=== PATIENT | female | born 1940 | race Caucasian/White ===

== ENCOUNTER 2018-11-01 15:58 | Observation (INO) | payer OTHER ==
[2018-11-01] MEDS ORDERED: IPRATROPIUM BROM 0.5MG/2.5ML ONE (16:42)
[2018-11-01] MEDS ORDERED: ALBUTEROL 2.5 MG/3 ML NEB SOL ONE (16:42)
[2018-11-01 17:08] LABS: Absolute Lymphocytes (CBC) 0.8 K/uL (0.7-4.9); Absolute Monocytes 0.4 K/uL (0.1-1.3); Absolute Neutrophil 4.8 K/uL (1.8-8.0); Basophils % 0.9 % (0-1.3); Eosinophils % 0.2 % (0-4.4); Hematocrit 43.2 % (36.0-45.0); Lymphocytes % 13.7 % (15.3-44.8); MCH 29.7 pg (27.0-35.0); MCV 87.5 fL (80-100); MPV 7.8 fL (7.6-11.3); Monocytes % 7.4 % (3.3-12.3); RBC Red Blood Cell Count 4.94 M/uL (3.86-4.86)
[2018-11-01 17:13] LABS: Protime INR 1.89
[2018-11-01 17:23] LABS: ALT/SGPT 14 U/L (12-78); AST/SGOT 14 U/L (15-37); Albumin 3.5 g/dL (3.4-5.0); Alkaline Phosphatase 101 U/L (45-117); BUN Blood Urea Nitrogen 14 mg/dL (7-18); Bicarbonate 30 mmol/L (21-32); Bilirubin Direct 0.1 mg/dL (0-0.2); Bilirubin Total 0.4 mg/dL (0.2-1.0); Glucose Level 132 mg/dL (74-106); Magnesium 2.1 mg/dL (1.8-2.4); NT PRO-BNP 654 pg/mL (<450); Potassium 3.6 mmol/L (3.5-5.1); Protein, Total 7.4 g/dL (6.4-8.2); Sodium Level 138 mmol/L (136-145); Troponin (Emerg Dept Use Only) < 0.02 ng/mL (0.0-0.045)
--- NOTE | 2018-11-01 17:55 | RAD REPORT ---
EXAM DESCRIPTION: Kaur Single View11/01/2018 5:33 pm CLINICAL HISTORY: cough COMPARISON: October 2017 FINDINGS: Calcified lung granulomas. The lungs appear clear of acute infiltrate. The heart is normal size IMPRESSION: No acute abnormalities displayed
[2018-11-01] MEDS ORDERED: predniSONE 20 MG TAB ONE (19:29)
--- NOTE | 2018-11-01 19:40 | ER ---
Nurse's Notes [facility] Name: Chrissy Vega Age: 78 yrs Sex: Female : 1940 Arrival Date: 11/01/2018 Time: 16:02 Bed 27 Private MD: out of town, doctor Diagnosis: Chronic obstructive pulmonary disease with (acute) exacerbation Presentation: 11/01 16:10 Presenting complaint: Patient states: productive cough, fever, congestion, SOB x 2 sv days. Transition of care: patient was not received from another setting of care. Onset of symptoms was October 30, 2018. Care prior to arrival: None. 16:10 Method Of Arrival: Wheelchair sv 16:10 Acuity: BEATRICE 3 sv 16:15 Risk Assessment: Do you want to hurt yourself or someone else? Patient reports no kr2 desire to harm self or others. Initial Sepsis Screen: Does the patient meet any 2 criteria? RR > 20 per min. No. Patient's initial sepsis screen is negative. Does the patient have a suspected source of infection? Yes: Productive cough/pneumonia. Triage Assessment: 16:10 General: Appears uncomfortable, Behavior is calm, cooperative, appropriate for age. sv Pain: Complains of pain in back of neck Pain currently is 7 out of 10 on a pain scale. Neuro: Level of Consciousness is awake, alert, obeys commands, Oriented to person, place, time, situation, Moves all extremities. Full function. Respiratory: Reports shortness of breath at rest on exertion labored breathing Airway is patent Respiratory effort is even, labored, Respiratory pattern is tachypnea Onset: The symptoms/episode began/occurred yesterday, the patient has moderate shortness of breath. Historical: - Allergies: 16:11 Codeine; sv 16:11 Naproxen; sv 16:11 PENICILLINS; sv - PSHx: 16:11 Hysterectomy; breast surgery; Appendectomy; Cholecystectomy; Back surgery x2; hip sv replacement; knee replacement; R ankle; - Immunization history:: Adult Immunizations unknown. - Social history:: Smoking status: Patient uses tobacco products. - Ebola Screening: : No symptoms or risks identified at this time. Screenin:15 Abuse screen: Denies threats or abuse. Denies injuries from another. Nutritional kr2 screening: No deficits noted. Tuberculosis screening: No symptoms or risk factors identified. Fall Risk Gait- Weak (10 pts.). Assessment: 16:15 General: Appears in no apparent distress. uncomfortable, well groomed, well developed, kr2 well nourished, Behavior is calm, cooperative. Pain: Denies pain. Neuro: Level of Consciousness is awake, alert, obeys commands, Oriented to person, place, time, situation. Cardiovascular: Patient's skin is warm and dry. Rhythm is regular. Respiratory: Airway is patent Respiratory effort is labored, Respiratory pattern is symmetrical, tachypnea Breath sounds are coarse bilaterally. Respiratory: Reports shortness of breath at rest on exertion cough that is productive, persistent the patient has moderate shortness of breath. GI: Abdomen is non-distended, obese, Bowel sounds present X 4 quads. Patient currently denies nausea, vomiting. EENT: Oral mucosa is dry. Derm: Skin is fragile, is thin, with poor turgor Skin is pink, warm \T\ dry. Musculoskeletal: Circulation, motion, and sensation intact. 17:27 Reassessment: Patient appears in no apparent distress at this time. Patient and/or kr2 family updated on plan of care and expected duration. Pain level reassessed. Patient is alert, oriented x 3, equal unlabored respirations, skin warm/dry/pink. 18:24 Reassessment: Patient appears in no apparent distress at this time. Patient and/or kr2 family updated on plan of care and expected duration. Pain level reassessed. Patient is alert, oriented x 3, equal unlabored respirations, skin warm/dry/pink. 19:30 Reassessment: Patient appears in no apparent distress at this time. Patient and/or kr2 family updated on plan of care and expected duration. Pain level reassessed. Patient is alert, oriented x 3, equal unlabored respirations, skin warm/dry/pink. Patient denies pain at this time. Patient states feeling better. 20:32 Reassessment: Patient appears in no apparent distress at this time. Patient and/or kr2 family updated on plan of care and expected duration. Pain level reassessed. Patient is alert, oriented x 3, equal unlabored respirations, skin warm/dry/pink. Patient denies pain at this time. Vital Signs: 16:11 BP 146 / 81; Pulse 93; Resp 28; Temp 98.2; Pulse Ox 94% on R/A; Weight 95.25 kg; Height sv 5 ft. 7 in. (170.18 cm); Pain 7/10; 17:15 BP 147 / 88; Pulse 86; Resp 23; Pulse Ox 96% on 2 lpm NC; kr2 18:21 BP 152 / 85; Pulse 80; Resp 19; Pulse Ox 97% on 2 lpm NC; kr2 19:24 BP 117 / 96; Pulse 87; Resp 20; Pulse Ox 97% on NC; kr2 20:32 BP 128 / 65; Pulse 88; Resp 17; Pulse Ox 99% on R/A; kr2 16:11 Body Mass Index 32.89 (95.25 kg, 170.18 cm) sv ED Course: 16:02 Patient arrived in ED. mr 16:02 out of town, doctor is Private Physician. mr 16:11 Triage completed. sv 16:12 Arm band placed on. sv 16:14 Claus Cordon MD is Attending Physician. gs 16:15 Patient has correct armband on for positive identification. Bed in low position. Call kr2 light in reach. Side rails up X2. Adult w/ patient. monitoring coordinator on. Pulse ox on. NIBP on. Door closed. Warm blanket given. Pillow given. Head of bed elevated. 16:45 Inserted saline lock: 22 gauge in right antecubital area, using aseptic technique. kr2 Blood collected. 17:06 Enma Bazan, RN is Primary Nurse. kr2 17:08 EKG done, by railway signal technician. reviewed by Claus Cordon MD. dt2 17:31 X-ray completed. Portable x-ray completed in exam room. Patient tolerated procedure ml well. 17:33 XRAY Chest (1 view) In Process Unspecified. EDMS 19:38 Travon Bautista MD is Hospitalizing Provider. gs 21:04 No provider procedures requiring assistance completed. Patient admitted, IV remains in kr2 place. 21:09 Inserted saline lock: 22 gauge in left antecubital area, using aseptic technique. mt Administered Medications: 16:45 Drug: Albuterol 2.5 mg Route: Inhalation; kr2 16:45 Drug: AtroVENT Aerosol 0.5 mg Route: Inhalation; kr2 19:24 Drug: predniSONE 40 mg Route: PO; kr2 20:31 Follow up: Response: No adverse reaction kr2 Outcome: 19:39 Decision to Hospitalize by Provider. 21:15 Admitted to Tele accompanied by tech, family with patient, via wheelchair, room 209, kr2 with oxygen, with chart, Report called to Shaun 21:15 Condition: stable 21:15 Instructed on the need for admit, Demonstrated understanding of instructions. 21:16 Patient left the ED. kr2 Signatures: Dispatcher [employer] Laurie Weber RN RN Ilir, Adilene mr Kolton, Sammi Roldan, Claus Olson mt, MD MD gs Reaves, Karey, RN RN kr2 Shabnam Solorio2
--- NOTE | 2018-11-01 19:40 | EDPHYS ---
Physician Documentation [facility] Name: Chrissy Vega Age: 78 yrs Sex: Female : 1940 Arrival Date: 11/01/2018 Time: 16:02 Bed 27 Private MD: out of town, doctor ED Physician Claus Cordon HPI: 11/01 20:04 This 78 yrs old Female presents to ER via Wheelchair with complaints of gs Cough, Fever, Breathing Difficulty. 20:04 The patient or guardian reports cough, that is constant. Onset: The symptoms/episode gs began/occurred 5 day(s) ago, and became worse and became persistent. Severity of symptoms: At their worst the symptoms were moderate, in the emergency department the symptoms are unchanged. Associated signs and symptoms: Pertinent positives: chest pain, fever. The patient has experienced similar episodes in the past, a few times. Historical: - Allergies: 16:11 Codeine; sv 16:11 Naproxen; sv 16:11 PENICILLINS; sv - PSHx: 16:11 Hysterectomy; breast surgery; Appendectomy; Cholecystectomy; Back surgery x2; hip sv replacement; knee replacement; R ankle; - Immunization history:: Adult Immunizations unknown. - Social history:: Smoking status: Patient uses tobacco products. - Ebola Screening: : No symptoms or risks identified at this time. ROS: 20:04 All other systems are negative. gs Exam: 20:04 Head/Face: Normocephalic, atraumatic. Eyes: Pupils equal round and reactive to light, gs extra-ocular motions intact. Lids and lashes normal. Conjunctiva and sclera are non-icteric and not injected. Cornea within normal limits. Periorbital areas with no swelling, redness, or edema. ENT: Nares patent. No nasal discharge, no septal abnormalities noted. Tympanic membranes are normal and external auditory canals are clear. Oropharynx with no redness, swelling, or masses, exudates, or evidence of obstruction, uvula midline. Mucous membranes moist. Neck: Trachea midline, no thyromegaly or masses palpated, and no cervical lymphadenopathy. Supple, full range of motion without nuchal rigidity, or vertebral point tenderness. No Meningismus. Chest/axilla: Normal chest wall appearance and motion. Nontender with no deformity. No lesions are appreciated. Abdomen/GI: Soft, non-tender, with normal bowel sounds. No distension or tympany. No guarding or rebound. No evidence of tenderness throughout. Back: No spinal tenderness. No costovertebral tenderness. Full range of motion. Skin: Warm, dry with normal turgor. Normal color with no rashes, no lesions, and no evidence of cellulitis. MS/ Extremity: Pulses equal, no cyanosis. Neurovascular intact. Full, normal range of motion. Neuro: Awake and alert, GCS 15, oriented to person, place, time, and situation. Cranial nerves II-XII grossly intact. Motor strength 5/5 in all extremities. Sensory grossly intact. Cerebellar exam normal. Normal gait. 20:04 Constitutional: The patient appears alert, awake, in obvious distress, moderately distressed. 20:04 Cardiovascular: Rate: normal, Rhythm: regular, Pulses: no pulse deficits are appreciated, Edema: is not appreciated. 20:04 ECG was reviewed by the Attending Physician. 20:04 Respiratory: the patient does not display signs of respiratory distress, Respirations: tachypnea, Breath sounds: rhonchi, that are severe, are heard diffusely. Vital Signs: 16:11 BP 146 / 81; Pulse 93; Resp 28; Temp 98.2; Pulse Ox 94% on R/A; Weight 95.25 kg; Height sv 5 ft. 7 in. (170.18 cm); Pain 7/10; 17:15 BP 147 / 88; Pulse 86; Resp 23; Pulse Ox 96% on 2 lpm NC; kr2 18:21 BP 152 / 85; Pulse 80; Resp 19; Pulse Ox 97% on 2 lpm NC; kr2 19:24 BP 117 / 96; Pulse 87; Resp 20; Pulse Ox 97% on NC; kr2 20:32 BP 128 / 65; Pulse 88; Resp 17; Pulse Ox 99% on R/A; kr2 16:11 Body Mass Index 32.89 (95.25 kg, 170.18 cm) sv MDM: 16:24 Patient medically screened. 20:04 Differential Diagnosis: Bronchitis Asthma Exacerbation Pneumonia Other copd, chf. Data gs reviewed: vital signs, nurses notes. Response to treatment: the patient's symptoms have markedly improved after treatment, and as a result, I will admit patient. 11/01 16:30 Order name: Basic Metabolic Panel; Complete Time: 17:34 gs 11/01 16:30 Order name: CBC with Diff; Complete Time: 17:34 11/01 16:30 Order name: LFT's; Complete Time: 17:34 11/01 16:30 Order name: Magnesium; Complete Time: 17:34 11/01 16:30 Order name: NT PRO-BNP; Complete Time: 17:34 11/01 16:30 Order name: PT-INR; Complete Time: 17:34 11/01 16:30 Order name: Troponin (emerg Dept Use Only); Complete Time: 17:34 11/01 16:30 Order name: Blood Culture* 11/01 19:49 Order name: CBC with Automated Diff EDMS 11/01 19:49 Order name: CBC with Automated Diff EDMS 11/01 19:49 Order name: Comprehensive Metabolic Panel EDMS 11/01 19:49 Order name: Comprehensive Metabolic Panel EDMS 11/01 19:49 Order name: Lipid Profile EDMS 11/01 19:49 Order name: Lipid Profile EDMS 11/01 16:30 Order name: XRAY Chest (1 view); Complete Time: 18:12 11/01 16:30 Order name: EKG; Complete Time: 16:31 11/01 16:30 Order name: Cardiac monitoring; Complete Time: 17:05 11/01 19:49 Order name: Heart Healthy EDMS 11/01 19:49 Order name: Magnesium EDMS 11/01 19:49 Order name: Magnesium EDMS 11/01 19:49 Order name: Phosphorus EDMS 11/01 19:49 Order name: Phosphorus EDMS 11/01 19:49 Order name: NT PRO-BNP EDMS 11/01 19:49 Order name: NT PRO-BNP EDMS 11/01 19:49 Order name: Troponin I EDMS 11/01 19:49 Order name: Troponin I EDMS 11/01 19:49 Order name: Troponin I EDMS 11/01 16:30 Order name: EKG - Nurse/Tech; Complete Time: 17:06 11/01 16:30 Order name: IV Saline Lock; Complete Time: 17:10 11/01 16:30 Order name: Labs collected and sent; Complete Time: 17:10 11/01 16:30 Order name: O2 Per Protocol; Complete Time: 17:05 11/01 16:30 Order name: O2 Sat Monitoring; Complete Time: 17:05 gs 12 18:13 Order name: Vital Signs; Complete Time: 18:29 gs EC: Rate is 90 beats/min. Rhythm is regular. OH interval is normal. QRS interval is gs prolonged. QT interval is prolonged. T waves are Inverted. Clinical impression: NSR w/ Non-specific ST/T Changes and Abnormal EKG without significant change. Interpreted by me. Administered Medications: 16:45 Drug: Albuterol 2.5 mg Route: Inhalation; kr2 16:45 Drug: AtroVENT Aerosol 0.5 mg Route: Inhalation; kr2 19:24 Drug: predniSONE 40 mg Route: PO; kr2 20:31 Follow up: Response: No adverse reaction kr2 Disposition: 11/01/18 19:39 Hospitalization ordered by Travon Bautista for Observation. Preliminary diagnosis is Chronic obstructive pulmonary disease with (acute) exacerbation. - Bed requested for Telemetry/MedSurg (observation). - Status is Observation. kr2 - Condition is Stable. - Problem is new. - Symptoms have improved. UTI on Admission? No Critical care time excluding procedures: 20:04 Critical care time: Bedside Care: 10 minutes, Consultation: 10 minutes, Family gs Intervention: 10 minutes. Total time: 30 minutes Signatures: Dispatcher [employer] Laurie Weber RN RN sv Garcia, Cindy, RN RN cg Starr, Gregory, MD MD Enma Bazan RN RN kr2 Corrections: (The following items were deleted from the chart) 20:02 19:39 Hospitalization Ordered by Travon Bautista MD for Observation. Preliminary cg diagnosis is Chronic obstructive pulmonary disease with (acute) exacerbation. Bed requested for Telemetry/MedSurg (observation). Status is Observation. Condition is Stable. Problem is new. Symptoms have improved. UTI on Admission? No. gs 20:24 20:02 11/01/2018 19:39 Hospitalization Ordered by Travon Bautista MD for Observation. cg Preliminary diagnosis is Chronic obstructive pulmonary disease with (acute) exacerbation. Bed requested for Telemetry/MedSurg (observation). Status is Observation. Condition is Stable. Problem is new. Symptoms have improved. UTI on Admission? No. cg 21:16 20:24 11/01/2018 19:39 Hospitalization Ordered by Travon Bautista MD for Observation. kr2 Preliminary diagnosis is Chronic obstructive pulmonary disease with (acute) exacerbation. Bed requested for Telemetry/MedSurg (observation). Status is Observation. Condition is Stable. Problem is new. Symptoms have improved. UTI on Admission? No. cg
[2018-11-01] MEDS ORDERED: ONDANSETRON 4 MG/2 ML VIAL IV PRN (19:45)
[2018-11-01] MEDS ORDERED: ALBUTEROL 2.5 MG/3 ML NEB SOL NEB PRN (19:45)
[2018-11-01] MEDS ORDERED: ACETAMINOPHEN 500 MG TAB PO PRN (19:45)
[2018-11-01] MEDS: IPRATROPIUM BROM 0.5MG/2.5ML NEB SCH (20:00)
[2018-11-01] MEDS: POTASSIUM 25 MEQ EFFERV TAB PO ONE ×2 (21:20→21:43)
[2018-11-01] MEDS ORDERED: POTASSIUM CL SA 10 MEQ TAB PO ONE (22:14)
[2018-11-01 22:21] VITALS: BMI 31.1
--- NOTE | 2018-11-01 22:39 | EKG ---
Test Date: 2018-11-01 Test Time: 16:47:43 Cloth Finishing Range Back Tender: DOUGLAS MEASUREMENT RESULTS: Intervals: Rate: 78 MI: QRSD: 90 QT: 386 QTc: 440 [place]: P: MI: QRS: -43 T: 56 INTERPRETIVE STATEMENTS: atrial fibrillation Left axis deviation Cannot rule out Anterior infarct, age undetermined Abnormal ECG Compared to ECG 11/24/2017 12:49:32 Left-axis deviation now present ST (T wave) deviation no longer present Electronically Signed On 11-01-18 22:39:10 FLOOR WINDER by Larry Bautista
[2018-11-01] MEDS: METHYLPREDNISOLONE 125 MG INJ IV SCH (23:38)
[2018-11-02] MEDS: IPRATROPIUM BROM 0.5MG/2.5ML NEB SCH ×2 (02:00→08:13)
[2018-11-02 04:52] VITALS: TEMP 98.2
[2018-11-02] MEDS: METHYLPREDNISOLONE 125 MG INJ IV SCH (05:29)
[2018-11-02] MEDS ORDERED: AMLODIPINE 5 MG TAB PO SCH (09:00)
[2018-11-02] MEDS ORDERED: METOPROLOL XL 50 MG TAB PO SCH (09:00)
[2018-11-02] MEDS ORDERED: RIVAROXABAN 20 MG TABLET PO SCH (09:00)
[2018-11-02] MEDS ORDERED: ENOXAPARIN 40 MG/0.4 ML SQ SCH (09:00)
[2018-11-02 09:04] VITALS: O2SAT 98
[2018-11-02 10:30] VITALS: BP 144/68
--- NOTE | 2018-11-02 15:52 | P.HP ---
Certification for Inpatient Patient admitted to: Observation With expected LOS: <2 Midnights Patient will require the following post-hospital care: None Practitioner: I am a practitioner with admitting privileges, knowledge of patient current condition, hospital course, and medical plan of care. Services: Services provided to patient in accordance with Admission requirements found in Title 42 Section 412.3 of the Code of Federal Regulations Patient History Date of Service: 11/01/18 Reason for admission: COPD exacerbation History of Present Illness: patient is a 78-year-old female who came to the hospital with respiratory distress. Patient was having a difficult time breathing and had diffuse wheezing throughout. Her symptoms continue to gradually decline. She came into the ER for further evaluation. In the emergency room her chest x-rays showed chronic changes with no acute abnormalities. There was no pneumonic infiltrates nor did we see any pulmonary edema. Patient had diffuse wheezing. She was given nebs, steroids, and antibiotics. She will be admitted for observation. Allergies codeine Allergy (Verified 11/01/18 23:08) Nausea/Vomiting naproxen Allergy (Verified 11/01/18 23:08) hypotension Penicillins Allergy (Verified 11/01/18 23:08) Itching Home Medications: Amlodipine [Norvasc*] 5 mg PO DAILY 11/01/18 Ipratropium Rico 30 ml NS TID PRN 11/01/18 Levothyroxine Sodium [Synthroid] 150 mcg PO DAILY 11/01/18 Metoprolol Succinate [Toprol Xl*] 50 mg PO DAILY 11/01/18 Pravastatin Sodium 20 mg PO DAILY 11/01/18 Rivaroxaban [Xarelto] 20 mg PO DAILY 11/01/18 Ipratropium/Albuterol Sulfate [Iprat-Albut 0.5-3(2.5) mg/3 ml] 3 ml IH BID #1 ampul.neb 11/02/18 - Past Medical/Surgical History Has patient received pneumonia vaccine in the past: Yes Diabetic: No -: COPD -: Atrial fibrillation -: Chronic anti coagulation -: Hypertension -: Tobacco use -: Hypothyroidism -: hysterectomy -: breast surgery -: appendectomy -: back surgeryx2 -: hip replacement bilateral -: left knee replacement -: ankle right -: Cholecystectomy Psychosocial/ Personal History: The patient is a . She lives by herself. She has 4 children. - Family History Father Family History: Reviewed- Non-Contributory - Social History Smoking Status: Heavy Tobacco smoker (>10 cigarettes/day) Alcohol use: No CD- Drugs: No Caffeine use: Yes Place of Residence: Home Review of Systems 10-point ROS is otherwise unremarkable Physical Examination - Vital Signs Temperature: 98.2 F Blood Pressure: 144/68 Pulse: 79 Respirations: 20 Pulse Ox (%): 100 - Physical Exam General: Alert, In no apparent distress, Oriented x3 HEENT: Atraumatic, PERRLA, Mucous membr. moist/pink, EOMI, Sclerae nonicteric Neck: Supple, No LAD, Without JVD or thyroid abnormality, Bruit Respiratory: Diminished, Expiratory wheezes, Inspiratory wheezes Cardiovascular: Regular rate/rhythm, Normal S1 S2, Systolic murmur Gastrointestinal: Normal bowel sounds, Soft and benign, Non-distended, No tenderness Musculoskeletal: No clubbing, No swelling, No tenderness Integumentary: No rashes Neurological: Normal gait, Normal speech, Normal strength at 5/5 x4 extr, Normal tone, Sensation intact, Cranial nerves 3-12 intact, Normal affect Lymphatics: No axilla or inguinal lymphadenopathy - Studies Laboratory Data (last 24 hrs) 11/01/18 16:45: PT 22.4 H, INR 1.89 11/01/18 16:45: WBC 6.1, Hgb 14.7, Hct 43.2, Plt Count 294 11/01/18 16:45: Sodium 138, Potassium 3.6, BUN 14, Creatinine 0.80, Glucose 132 H, Magnesium 2.1, Total Bilirubin 0.4, AST 14 L, ALT 14, Alkaline Phosphatase 101 Assessment & Plan - Problems (Diagnosis) (1) COPD with acute exacerbation Onset Date: 02/01/17 Status: Acute (2) Hyperlipidemia Onset Date: 02/01/17 Status: Acute (3) Hypokalemia Onset Date: 02/01/17 Status: Acute (4) Hypomagnesemia Onset Date: 11/25/17 Status: Acute (5) Atrial fibrillation Onset Date: 02/01/17 Status: Chronic Qualifiers: (6) Hypertension Onset Date: 02/01/17 Status: Chronic Qualifiers: (7) Hypothyroidism Onset Date: 02/01/17 Status: Chronic Qualifiers: (8) Tobacco abuse Onset Date: 12/28/17 Status: Chronic - Plan -nebs, steroids, and antibiotics -O2 per protocol. - patient will need outpatient pulmonary follow-up -outpatient spirometry or pulmonary function testing -repeat chest x-ray -pulmonary consultation if symptoms worsen. Patient is still wheezing after nebs and steroids. her oxygen saturations are stable however my concern is that she has semi comorbidities he may need an additional 24-48 hours of hospitalization. She seems anxious to leave in the morning however because of the diffuse wheezing I worry she will be readmitted; she has not turned the corner and she doesn't have the ability at this time to truly care for herself as she gets really tachypneic so quickly. An additional 24hrs to 48hrs of hospital stay may be beneficial. Discharge Plan: Home Plan to discharge in: 48 Hours - Advance Directives Does patient have a Living Will: No Does patient have a Durable POA for Healthcare: No - Code Status/Comfort Care Code Status Assessed: Yes Code Status: Full Code Critical Care: No Time Spent Managing PTS Care (In Minutes): 50
--- NOTE | 2018-11-02 16:29 | P.SSS ---
Patient History Date of Service: 11/02/18 Reason for admission: COPD exacerbation History of Present Illness: patient is a 78-year-old female who came to the hospital with respiratory distress. Patient was having a difficult time breathing and had diffuse wheezing throughout. Her symptoms continue to gradually decline. She came into the ER for further evaluation. In the emergency room her chest x-rays showed chronic changes with no acute abnormalities. There was no pneumonic infiltrates nor did we see any pulmonary edema. Patient had diffuse wheezing. She was given nebs, steroids, and antibiotics. She will be admitted for observation. Allergies codeine Allergy (Verified 11/01/18 23:08) Nausea/Vomiting naproxen Allergy (Verified 11/01/18 23:08) hypotension Penicillins Allergy (Verified 11/01/18 23:08) Itching Home Medications: Amlodipine [Norvasc*] 5 mg PO DAILY 11/01/18 Ipratropium [place] 30 ml NS TID PRN 11/01/18 Levothyroxine Sodium [Synthroid] 150 mcg PO DAILY 11/01/18 Metoprolol Succinate [Toprol Xl*] 50 mg PO DAILY 11/01/18 Pravastatin Sodium 20 mg PO DAILY 11/01/18 Rivaroxaban [Xarelto] 20 mg PO DAILY 11/01/18 Ipratropium/Albuterol Sulfate [Iprat-Albut 0.5-3(2.5) mg/3 ml] 3 ml IH BID #1 ampul.neb 11/02/18 - Past Medical/Surgical History Has patient received pneumonia vaccine in the past: Yes Diabetic: No -: COPD -: Atrial fibrillation -: Chronic anti coagulation -: Hypertension -: Tobacco use -: Hypothyroidism -: hysterectomy -: breast surgery -: appendectomy -: back surgeryx2 -: hip replacement bilateral -: left knee replacement -: ankle right -: Cholecystectomy Psychosocial/ Personal History: The patient is a . She lives by herself. She has 4 children. - Social History Smoking Status: Heavy Tobacco smoker (>10 cigarettes/day) Alcohol use: No CD- Drugs: No Caffeine use: Yes Place of Residence: Home Review of Systems 10-point ROS is otherwise unremarkable Physical Examination - Vital Signs Temperature: 98.2 F Blood Pressure: 144/68 Pulse: 79 Respirations: 20 Pulse Ox (%): 100 - Physical Exam General: Alert, In no apparent distress HEENT: Atraumatic, PERRLA, Mucous membr. moist/pink, EOMI, Sclerae nonicteric Neck: Supple, 2+ carotid pulse no bruit, No LAD, Without JVD or thyroid abnormality Respiratory: Clear to auscultation bilaterally, Normal air movement Cardiovascular: Regular rate/rhythm, Normal S1 S2 Gastrointestinal: Normal bowel sounds, No tenderness Musculoskeletal: No tenderness Integumentary: No rashes Neurological: Normal gait, Normal speech, Normal strength at 5/5 x4 extr, Normal tone, Normal affect Lymphatics: No axilla or inguinal lymphadenopathy - Studies Laboratory Data (last 24 hrs) 11/01/18 16:45: PT 22.4 H, INR 1.89 11/01/18 16:45: WBC 6.1, Hgb 14.7, Hct 43.2, Plt Count 294 11/01/18 16:45: Sodium 138, Potassium 3.6, BUN 14, Creatinine 0.80, Glucose 132 H, Magnesium 2.1, Total Bilirubin 0.4, AST 14 L, ALT 14, Alkaline Phosphatase 101 - Diagnosis (Problem(s)) (1) COPD exacerbation Status: Acute (2) Hyperlipidemia Onset Date: 02/01/17 Status: Chronic Qualifiers: Hyperlipidemia type: mixed hyperlipidemia Qualified Code(s): E78.2 - Mixed hyperlipidemia (3) Atrial fibrillation Onset Date: 02/01/17 Status: Chronic Qualifiers: Atrial fibrillation type: chronic (4) Hypertension Onset Date: 02/01/17 Status: Chronic Qualifiers: Hypertension type: essential hypertension (5) Hypothyroidism Onset Date: 02/01/17 Status: Chronic Qualifiers: Hypothyroidism type: acquired Qualified Code(s): E03.9 - Hypothyroidism, unspecified (6) Tobacco abuse Onset Date: 11/25/17 Status: Chronic (7) GERD (gastroesophageal reflux disease) Onset Date: 11/25/17 Status: Suspected Qualifiers: Esophagitis presence: esophagitis presence not specified Qualified Code(s) : K21.9 - Gastro-esophageal reflux disease without esophagitis Treatment Summary: Overall during the hospital stay patient main stable Patient was initially admitted to the hospital for COPD exacerbation. Was started on duo nebs, steroids and oxygen while here in the hospital. Patient had marked improvement in her symptoms and then was switched over to room air. Patient saturated well and thus was discharged home under stable condition. While here in the hospital patient did refuse her lab work and a blessing treatment 1 time. Patient stated on being discharged home and continue nebulizing treatment at home. Patient was given prescription for nebulizer and then was discharged home under stable condition. Patient was asked to follow up with primary care provider along with pulmonology to ensure appropriate followup - Disposition Disposition: ROUTINE DISCHARGE Condition: GOOD Diet: Regular Activity: Ad kailash
[2018-11-02] MEDS ORDERED: ATORVASTATIN 10 MG TAB PO SCH (21:00)
[2018-11-03] MEDS ORDERED: LEVOTHYROXINE SOD 0.075 MG TAB PO SCH (06:30)
== END 2018-11-02 11:29 | disposition home or self-care (01) ==
LOC: ER 15:58 → ERHOLD 19:45 → 2ND 21:05
PROVIDERS: ADMIT Hospitalist; ATTEND Hospitalist
DX: J44.1 Chronic obstructive pulmonary disease with (acute) exacerbation (principal); I48.91 Unspecified atrial fibrillation; I10 Essential (primary) hypertension; E03.9 Hypothyroidism, unspecified; E78.5 Hyperlipidemia, unspecified; E87.6 Hypokalemia; E83.42 Hypomagnesemia; Z96.643 Presence of artificial hip joint, bilateral; Z96.652 Presence of left artificial knee joint; Z79.01 Long term (current) use of anticoagulants; Z88.0 Allergy status to penicillin; F17.210 Nicotine dependence, cigarettes, uncomplicated
CPT/HCPCS: 36415; 71045; 80048; 80076; 83735; 83880; 84484; 85025; 85610; 87040 ×2; 87070; 87205; 93005; 94640; 94760; 99285; G0378 ×2; J2930; J7512